=== PATIENT | male | born 1935 | race Caucasian/White ===

== ENCOUNTER 2018-07-22 02:06 | Outpatient (CLI) | payer MEDICARE, BC, SELFPAY | END 2018-07-22 02:26 | PROVIDERS: Visit Provider Dermatology | DX: L11.1 Transient acantholytic dermatosis [Grover] (principal) | CPT/HCPCS: 96910 ==

== ENCOUNTER 2018-07-24 02:43 | Outpatient (CLI) | payer MEDICARE, BC, SELFPAY | END 2018-07-24 03:03 | PROVIDERS: Visit Provider Dermatology | DX: L11.1 Transient acantholytic dermatosis [Grover] (principal) | CPT/HCPCS: 96910 ==

== ENCOUNTER 2018-07-27 01:56 | Outpatient (CLI) | payer MEDICARE, BC, SELFPAY | END 2018-07-27 02:16 | PROVIDERS: Visit Provider Dermatology | DX: L11.1 Transient acantholytic dermatosis [Grover] (principal) | CPT/HCPCS: 96910 ==

== ENCOUNTER 2018-07-29 02:02 | Outpatient (CLI) | payer MEDICARE, BC, SELFPAY | END 2018-07-29 02:22 | PROVIDERS: Visit Provider Dermatology | DX: L11.1 Transient acantholytic dermatosis [Grover] (principal) | CPT/HCPCS: 96910 ==

== ENCOUNTER 2018-07-31 02:18 | Outpatient (CLI) | payer MEDICARE, BC, SELFPAY | END 2018-07-31 02:38 | PROVIDERS: Visit Provider Dermatology | DX: L11.1 Transient acantholytic dermatosis [Grover] (principal) ==

== ENCOUNTER 2018-08-03 01:56 | Outpatient (CLI) | payer MEDICARE, BC, SELFPAY | END 2018-08-03 02:16 | PROVIDERS: Visit Provider Dermatology | DX: L11.1 Transient acantholytic dermatosis [Grover] (principal) ==